=== PATIENT | male | born 1990 | race African-American/Black ===

== ENCOUNTER 2022-11-27 15:11 | Emergency (ER) | payer OTHER ==
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
[2022-11-27 18:11] VITALS: TEMP 98
[2022-11-27 18:12] VITALS: BP 118/76; O2SAT 100
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
== END 2022-11-27 17:20 | disposition short-term general hospital (02) ==
LOC: ER 15:11
DX: S01.111A Laceration without foreign body of right eyelid and periocular area, initial encounter (principal); Z20.822 Contact with and (suspected) exposure to COVID-19
CPT/HCPCS: 70450; 72125; 70486; 76377; 99284; U0003